=== PATIENT | male | born 1970 | race African-American/Black ===

== ENCOUNTER 2017-06-04 09:43 | Emergency (ER) | payer MEDICAID, OTHER ==
[~2017-06-04] VITALS: Ht 190.5 cm; Wt 100.0 kg
[2017-06-04] MEDS ORDERED: KETOROLAC 30MG/ML VIAL IV STA (11:38)
[2017-06-04] MEDS ORDERED: ACETAMINOPHEN 325MG TABLET PO STA (11:38)
[2017-06-04] MEDS ORDERED: SODIUM CHLORIDE 0.9% 1,000 ML IV ONE (11:38)
[2017-06-04 11:49] LABS: BASOPHILS % 0.4 % (0.0-2.0); EOSINOPHILS % 0.2 % (0.0-5.0); HEMATOCRIT. 43.5 % (42.0-52.0); HEMOGLOBIN. 15.1 g/dL (14.0-18.0); LYMPHOCYTES % 16.2 % (20.0-50.0); MEAN CORPUSCULAR VOLUME 86.5 fL (80.0-94.0); MEAN PLATELET VOLUME 8.7 fl (7.4-10.4); NEUTROPHILS % 70.2 % (40.0-76.0); PLATELET 171 x1000/uL (130-400); RED BLOOD CELL COUNT 5.02 mill/uL (4.7-6.1); RED CELL DISTRIBUTION WIDTH 13.2 % (11.6-14.6)
[2017-06-04 11:56] LABS: INR 1.1; PROTHROMBIN TIME 11.3 sec (9.4-11.6)
[2017-06-04 12:01] LABS: CHLORIDE 105 mEq/L (98-107)
[2017-06-04 13:53] VITALS: BP 172/108
== END 2017-06-04 14:07 | disposition home or self-care (01) ==
LOC: ER 10:17
DX: R51 Headache (principal); M79.1 Myalgia; R50.9 Fever, unspecified; R05 Cough; R79.1 Abnormal coagulation profile
CPT/HCPCS: 36415; 71045; 80053; 85025; 85610; 93005; 96361; 96374; 99285; J1885; J7030

== ENCOUNTER 2017-10-23 13:26 | Emergency (ER) | payer MEDICAID, OTHER ==
[~2017-10-23] VITALS: Ht 190.5 cm; Wt 109.0 kg
[2017-10-23 15:53] LABS: BASOPHILS % 0.7 % (0.0-2.0); EOSINOPHILS % 2.5 % (0.0-5.0); HEMATOCRIT. 38.3 % (42.0-52.0); HEMOGLOBIN. 13.6 g/dL (14.0-18.0); LYMPHOCYTES % 27.4 % (20.0-50.0); MEAN CORPUSCULAR HEMOGLOBIN 30.3 pg (28.0-32.0); MEAN CORPUSCULAR VOLUME 85.5 fL (80.0-94.0); MEAN PLATELET VOLUME 9.1 fl (7.4-10.4); NEUTROPHILS % 61.4 % (40.0-76.0); PLATELET 167 x1000/uL (130-400); RED BLOOD CELL COUNT 4.48 mill/uL (4.7-6.1); RED CELL DISTRIBUTION WIDTH 13.8 % (11.6-14.6)
[2017-10-23 15:54] LABS: CHLORIDE 106 mEq/L (98-107)
[2017-10-23 15:56] LABS: PROTHROMBIN TIME 10.7 sec (9.4-11.6)
[2017-10-23 16:00] VITALS: BP 175/110
== END 2017-10-23 17:46 | disposition home or self-care (01) ==
LOC: ER 13:26
DX: K12.2 Cellulitis and abscess of mouth (principal); J20.9 Acute bronchitis, unspecified; F17.200 Nicotine dependence, unspecified, uncomplicated
CPT/HCPCS: 36415; 71045; 80053; 83880; 84484; 85025; 85610; 93005; 99285; Z7610

== ENCOUNTER 2018-01-06 08:07 | Emergency (ER) | payer OTHER ==
[~2018-01-06] VITALS: Ht 190.5 cm; Wt 113.0 kg
[2018-01-06] MEDS ORDERED: HYDR-2510 PO (08:32)
[2018-01-06] MEDS ORDERED: AMLODIPINE 5MG TABLET PO ONE (09:15)
[2018-01-06 10:01] LABS: CHLORIDE 103 mEq/L (98-107)
[2018-01-06 10:33] VITALS: BP 181/128
== END 2018-01-06 10:36 | disposition home or self-care (01) ==
LOC: ER 08:07
DX: J02.9 Acute pharyngitis, unspecified (principal); Z79.899 Other long term (current) drug therapy
CPT/HCPCS: 36415; 80048; 99283; 99284

== ENCOUNTER 2018-02-17 15:28 | Inpatient (IN) | payer OTHER ==
[~2018-02-17] VITALS: Ht 182.9 cm; Wt 113.4 kg
[~2018-02-17 15:28] MED LIST: HYDR-2510 PO
[2018-02-17] MEDS ORDERED: LEVOFLOXACIN 750MG PREMIX 150 ML IV ONE (16:00)
[2018-02-17] MEDS ORDERED: SODIUM CHLORIDE 0.9% 1000ML BAG (SEPSIS BOLUS) IV ONE (16:00)
[2018-02-17 16:18] LABS: BASOPHILS % 0.5 % (0.0-2.0); EOSINOPHILS % 2.1 % (0.0-5.0); HEMATOCRIT. 43.8 % (42.0-52.0); HEMOGLOBIN. 15.5 g/dL (14.0-18.0); LYMPHOCYTES % 12.2 % (20.0-50.0); MEAN CORPUSCULAR HEMOGLOBIN 30.3 pg (28.0-32.0); MEAN CORPUSCULAR VOLUME 85.3 fL (80.0-94.0); MEAN PLATELET VOLUME 9.2 fl (7.4-10.4); MONOCYTES % 7.2 % (2.0-8.0); PLATELET 207 x1000/uL (130-400); RED BLOOD CELL COUNT 5.13 mill/uL (4.7-6.1); RED CELL DISTRIBUTION WIDTH 13.4 % (11.6-14.6)
[2018-02-17 16:27] LABS: CHLORIDE 105 mEq/L (98-107); PARTIAL THROMBOPLASTIN TIME 31.3 sec (23.4-31.0); PROTHROMBIN TIME 10.4 sec (9.1-11.1)
[2018-02-17] MEDS ORDERED: CLONIDINE 0.2MG TABLET PO ONE (16:30)
[2018-02-17] MEDS ORDERED: ACETAMINOPHEN 325MG TABLET PO ONE (16:30)
[2018-02-17 17:27] LABS: CLARITY URINE CLEAR (CLEAR); COLOR URINE YELLOW (YELLOW); KETONES URINE NEGATIVE (NEGATIVE); LEUKOCYTE ESTERASE URINE NEGATIVE (NEGATIVE); NITRITE URINE NEGATIVE (NEGATIVE); OCCULT BLOOD URINE NEGATIVE (NEGATIVE); PROTEIN URINE 1+ (NEGATIVE); SPECIFIC GRAVITY URINE 1.021 (1.005-1.030); UROBILINOGEN URINE 0.2 E.U./dL (0.2-1.0)
[2018-02-17] MEDS ORDERED: ALBUTEROL (0.083%) 2.5MG/3ML NEB HHN STA (17:59)
[2018-02-17] MEDS ORDERED: IPRATROPIUM BROMIDE (0.02%) 0.5MG/2.5ML NEB HHN STA (17:59)
[2018-02-17] MEDS ORDERED: METHYLPREDNISOLONE SOD SUCC 125 MG/2 ML VIAL IV STA (17:59)
[2018-02-17] MEDS ORDERED: ASPIRIN 325MG EC TABLET PO ONE (18:00)
[2018-02-17 21:00] VITALS: BP 155/101
[2018-02-17 21:57] VITALS: BP 155/101
[2018-02-17] MEDS ORDERED: AZITHROMYCIN 1,000 MG in DEXT 5% WATER 250 ML IV SCH (23:45)
[2018-02-17] MEDS ORDERED: CLONIDINE 0.1MG TABLET PO PRN (23:45)
[2018-02-17] MEDS ORDERED: CEFTRIAXONE 1,000 MG in DEXTROSE 5% WATER 50 ML IV SCH (23:45)
[2018-02-18] VITALS (7 sets, daily range): BP systolic 134–182; BP diastolic 86–122
[2018-02-18] MEDS: IPRATROPIUM/ALBUTEROL 0.5-3(2.5)MG/3ML NEB HHN SCH ×5 (04:23→19:59)
[2018-02-18] MEDS: METHYLPREDNISOLONE SOD SUCC 40 MG/ML VIAL IV SCH ×3 (06:47→21:14)
[2018-02-18] MEDS ORDERED: METHYLPREDNISOLONE SOD SUCC 40 MG/ML VIAL ONE (06:48)
[2018-02-18] MEDS: CEFTRIAXONE 1 G PREMIX 50 ML IV SCH (06:48)
[2018-02-18 06:51] LABS: HEMATOCRIT 38.4 % (42.0-52.0); HEMOGLOBIN 13.5 g/dL (14.0-18.0); MEAN CORPUSCULAR HEMOGLOBIN 30.5 pg (28.0-32.0); MEAN CORPUSCULAR VOLUME 86.3 fL (80.0-94.0); PLATELET 170 x1000/uL (130-400); RED BLOOD CELL COUNT 4.45 mill/uL (4.7-6.1); RED CELL DISTRIBUTION WIDTH 13.7 % (11.6-14.6)
[2018-02-18] MEDS: ENOXAPARIN 30MG/0.3ML SYR SUBCUT SCH ×2 (08:20→20:46)
[2018-02-18] MEDS: SODIUM CHLORIDE 0.9% 1,000 ML IV SCH (13:05)
[2018-02-18] MEDS: OMEPRAZOLE 20MG CAPSULE EXTENDED RELEASE PO SCH (13:05)
[2018-02-18] MEDS: NEBIVOLOL HCL 5 MG TABLET PO SCH (13:06)
[2018-02-18] MEDS ORDERED: AZITHROMYCIN 500MG in DEXTROSE 5% WATER 250ML IV SCH (14:30)
[2018-02-18] MEDS ORDERED: DEXTROSE 50% WATER 50ML SYRINGE IV PRN (19:00)
[2018-02-18] MEDS: LISINOPRIL 10MG TABLET PO SCH (19:08)
[2018-02-18] MEDS: BLOOD SUGAR DIAGNOSTIC STRIP TEST SCH (21:49)
[2018-02-18] MEDS: INSULIN LISPRO 100 UNITS/ML SUBCUT SCH (22:21)
[2018-02-18 22:46] LABS: CLARITY URINE CLEAR (CLEAR); COLOR URINE YELLOW (YELLOW); KETONES URINE TRACE (NEGATIVE); LEUKOCYTE ESTERASE URINE NEGATIVE (NEGATIVE); NITRITE URINE NEGATIVE (NEGATIVE); OCCULT BLOOD URINE NEGATIVE (NEGATIVE); PROTEIN URINE TRACE (NEGATIVE); SPECIFIC GRAVITY URINE 1.035 (1.005-1.030); UROBILINOGEN URINE 0.2 E.U./dL (0.2-1.0)
[2018-02-19] VITALS: BP 131/87
[2018-02-19] MEDS: CEFTRIAXONE 1 G PREMIX 50 ML IV SCH (01:10)
[2018-02-19] MEDS: IPRATROPIUM/ALBUTEROL 0.5-3(2.5)MG/3ML NEB HHN SCH ×5 (01:24→13:13)
[2018-02-19 04:00] VITALS: BP 134/86
[2018-02-19] MEDS: SODIUM CHLORIDE 0.9% 1,000 ML IV SCH (04:42)
[2018-02-19] MEDS: OMEPRAZOLE 20MG CAPSULE EXTENDED RELEASE PO SCH (06:33)
[2018-02-19] MEDS: METHYLPREDNISOLONE SOD SUCC 40 MG/ML VIAL IV SCH (06:33)
[2018-02-19] MEDS: BLOOD SUGAR DIAGNOSTIC STRIP TEST SCH ×2 (06:33→12:06)
[2018-02-19 08:00] VITALS: BP 146/95
[2018-02-19 08:00] LABS: HEMATOCRIT. 40.3 % (42.0-52.0); HEMOGLOBIN. 14.2 g/dL (14.0-18.0); MEAN CORPUSCULAR HEMOGLOBIN 30.8 pg (28.0-32.0); MEAN CORPUSCULAR VOLUME 87.5 fL (80.0-94.0); MEAN PLATELET VOLUME 9.9 fl (7.4-10.4); RED BLOOD CELL COUNT 4.61 mill/uL (4.7-6.1); RED CELL DISTRIBUTION WIDTH 13.8 % (11.6-14.6)
[2018-02-19] MEDS: NEBIVOLOL HCL 5 MG TABLET PO SCH (09:02)
[2018-02-19] MEDS: LISINOPRIL 10MG TABLET PO SCH (09:02)
[2018-02-19] MEDS: ENOXAPARIN 30MG/0.3ML SYR SUBCUT SCH (09:03)
[2018-02-19] MEDS: INSULIN LISPRO 100 UNITS/ML SUBCUT SCH ×2 (09:04→12:19)
[2018-02-19 09:14] LABS: CHLORIDE 109 mEq/L (98-107)
[2018-02-19 12:00] VITALS: BP 130/77
[2018-02-19 13:24] LABS: PLATELET 89 x1000/uL (130-400)
== END 2018-02-19 15:45 | disposition home or self-care (01) | DRG 133 ==
LOC: ER 15:41 → 6WST 18:08 → ENRESERV 19:47
PROVIDERS: ADMIT Internal Medicine; ATTEND Internal Medicine
DX: J96.01 Acute respiratory failure with hypoxia (principal); N17.9 Acute kidney failure, unspecified; E11.22 Type 2 diabetes mellitus with diabetic chronic kidney disease; E11.65 Type 2 diabetes mellitus with hyperglycemia; J20.9 Acute bronchitis, unspecified; I16.0 Hypertensive urgency; I12.9 Hypertensive chronic kidney disease with stage 1 through stage 4 chronic kidney disease, or unspecified chronic kidney disease; N18.9 Chronic kidney disease, unspecified; Z91.19 Patient's noncompliance with other medical treatment and regimen; Z87.891 Personal history of nicotine dependence; Z79.899 Other long term (current) drug therapy
CPT/HCPCS: 36415; 71045; 80048; 82962; 83036; 83605; 84145; 84484; 85027; 85379; 93005; 94640; 96365; 96375; 99285; J0456; J0696; J1650; J1815; J1956; J2920; J2930; J7030; J7040; J7050; J7060; J7611; J7620

== ENCOUNTER 2018-02-19 22:57 | Inpatient (IN) | payer OTHER ==
[~2018-02-19] VITALS: Ht 190.5 cm; Wt 119.3 kg
[2018-02-20] MEDS ORDERED: IPRATROPIUM BROMIDE (0.02%) 0.5MG/2.5ML NEB HHN STA ×2 (02:18→06:37)
[2018-02-20] MEDS ORDERED: ALBUTEROL (0.083%) 2.5MG/3ML NEB HHN STA ×2 (02:18→06:37)
[2018-02-20] MEDS ORDERED: METHYLPREDNISOLONE SOD SUCC 125 MG/2 ML VIAL IV STA (02:18)
[2018-02-20] MEDS ORDERED: ALBUTEROL (0.5%) 2.5MG/0.5ML NEB HHN ONE (02:44)
[2018-02-20 03:02] LABS: BASOPHILS % 0.3 % (0.0-2.0); EOSINOPHILS % 0.1 % (0.0-5.0); HEMATOCRIT. 42.4 % (42.0-52.0); HEMOGLOBIN. 14.8 g/dL (14.0-18.0); LYMPHOCYTES % 9.1 % (20.0-50.0); MEAN CORPUSCULAR HEMOGLOBIN 30.5 pg (28.0-32.0); MEAN CORPUSCULAR VOLUME 87.7 fL (80.0-94.0); MEAN PLATELET VOLUME 9.2 fl (7.4-10.4); MONOCYTES % 8.3 % (2.0-8.0); NEUTROPHILS % 82.2 % (40.0-76.0); PLATELET 202 x1000/uL (130-400); RED BLOOD CELL COUNT 4.84 mill/uL (4.7-6.1); RED CELL DISTRIBUTION WIDTH 13.8 % (11.6-14.6)
[2018-02-20 03:06] LABS: PROTHROMBIN TIME 10.1 sec (9.1-11.1)
[2018-02-20 03:38] LABS: CHLORIDE 108 mEq/L (98-107)
[2018-02-20] MEDS ORDERED: FUROSEMIDE 40MG/4ML VIAL IVP NR (05:30)
[2018-02-20 08:26] LABS: CLARITY URINE CLEAR (CLEAR); COLOR URINE YELLOW (YELLOW); KETONES URINE NEGATIVE (NEGATIVE); LEUKOCYTE ESTERASE URINE NEGATIVE (NEGATIVE); NITRITE URINE NEGATIVE (NEGATIVE); OCCULT BLOOD URINE 1+ (NEGATIVE); PROTEIN URINE TRACE (NEGATIVE); SPECIFIC GRAVITY URINE 1.013 (1.005-1.030); UROBILINOGEN URINE 0.2 E.U./dL (0.2-1.0)
[2018-02-20] MEDS: METOPROLOL TARTRATE 25MG TABLET PO SCH ×2 (12:17→23:25)
[2018-02-20] MEDS: CLONIDINE 0.2MG TABLET PO PRN (14:51)
[2018-02-20] MEDS ORDERED: CLONIDINE 0.1MG TABLET PO PRN (16:15)
[2018-02-20] MEDS: NEBIVOLOL HCL 5 MG TABLET PO SCH (17:15)
[2018-02-20 18:24] LABS: HEPATITIS B SURFACE ANTIGEN NEGATIVE
[2018-02-20] MEDS: HYDRALAZINE 20MG/ML VIAL IV PRN (18:34)
[2018-02-20 18:53] LABS: HEPATITIS B CORE AB IGM NEGATIVE
[2018-02-20 18:54] LABS: HEPATITIS A AB IGM NEGATIVE (NEGATIVE)
[2018-02-20] MEDS: LOSARTAN POTASSIUM 25 MG TABLET PO SCH (21:19)
[2018-02-20 21:23] LABS: *AMPHETAMINES SCREEN URINE NEGATIVE (NEGATIVE); *BARBITURATES SCREEN URINE NEGATIVE (NEGATIVE); *BENZODIAZEPINES SCREEN URINE NEGATIVE (NEGATIVE); *COCAINE SCREEN URINE NEGATIVE (NEGATIVE); METHADONE URINE SCREEN NEGATIVE (NEGATIVE)
[2018-02-20 21:24] LABS: CANNABINOID URINE SCREEN NEGATIVE (NEGATIVE); OPIATES URINE SCREEN NEGATIVE (NEGATIVE); PHENCYCLIDINE URINE SCREEN NEGATIVE (NEGATIVE)
[2018-02-20] MEDS: IPRATROPIUM/ALBUTEROL 0.5-3(2.5)MG/3ML NEB HHN PRN (21:40)
[2018-02-21] MEDS: CLONIDINE 0.2MG TABLET PO PRN (01:00)
[2018-02-21 06:33] LABS: BASOPHILS % 0.4 % (0.0-2.0); EOSINOPHILS % 0.5 % (0.0-5.0); HEMOGLOBIN. 14.4 g/dL (14.0-18.0); LYMPHOCYTES % 20.7 % (20.0-50.0); MEAN CORPUSCULAR HEMOGLOBIN 30.5 pg (28.0-32.0); MEAN CORPUSCULAR VOLUME 87.2 fL (80.0-94.0); MEAN PLATELET VOLUME 9.3 fl (7.4-10.4); MONOCYTES % 7.8 % (2.0-8.0); NEUTROPHILS % 70.6 % (40.0-76.0); PLATELET 201 x1000/uL (130-400); RED BLOOD CELL COUNT 4.71 mill/uL (4.7-6.1); RED CELL DISTRIBUTION WIDTH 13.7 % (11.6-14.6)
[2018-02-21 06:46] LABS: CHLORIDE 106 mEq/L (98-107)
[2018-02-21 07:02] LABS: CREATINE KINASE 170 IU/L (39-308); CREATINE KINASE MB FRACTION 2.2 ng/mL (0.5-3.6); HDL CHOLESTEROL 33 mg/dL (40-59); LDL CHOLESTEROL 76 mg/dL (5-100)
[2018-02-21] MEDS: NEBIVOLOL HCL 5 MG TABLET PO SCH ×2 (08:04→17:25)
[2018-02-21 09:00] VITALS: BP 149/100
[2018-02-21 09:36] VITALS: BP 149/100
[2018-02-21] MEDS: LOSARTAN POTASSIUM 25 MG TABLET PO SCH (10:41)
[2018-02-21] MEDS: FUROSEMIDE 40MG/4ML VIAL IV SCH (10:41)
[2018-02-21] MEDS: METOPROLOL TARTRATE 25MG TABLET PO SCH (10:42)
[2018-02-21 12:00] VITALS: BP 150/108
[2018-02-21] MEDS: ENOXAPARIN 30MG/0.3ML SYR SUBCUT SCH ×2 (15:08→22:44)
[2018-02-21 16:00] VITALS: BP 147/103
[2018-02-21 20:00] VITALS: BP 155/112
[2018-02-21] MEDS: LOSARTAN POTASSIUM 50 MG TABLET PO SCH (21:46)
[2018-02-21] MEDS: IPRATROPIUM/ALBUTEROL 0.5-3(2.5)MG/3ML NEB HHN PRN (22:14)
[2018-02-22 00:05] VITALS: BP 153/112
[2018-02-22 04:00] VITALS: BP 155/112
[2018-02-22] MEDS: CLONIDINE 0.2MG TABLET PO PRN (04:03)
[2018-02-22 07:50] VITALS: BP 117/93
[2018-02-22 07:55] LABS: BASOPHILS % 0.4 % (0.0-2.0); EOSINOPHILS % 2.5 % (0.0-5.0); HEMATOCRIT. 40.8 % (42.0-52.0); HEMOGLOBIN. 14.2 g/dL (14.0-18.0); LYMPHOCYTES % 27.7 % (20.0-50.0); MEAN CORPUSCULAR HEMOGLOBIN 30.7 pg (28.0-32.0); MEAN PLATELET VOLUME 9.4 fl (7.4-10.4); MONOCYTES % 8.4 % (2.0-8.0); PLATELET 198 x1000/uL (130-400); RED BLOOD CELL COUNT 4.64 mill/uL (4.7-6.1); RED CELL DISTRIBUTION WIDTH 13.7 % (11.6-14.6)
[2018-02-22] MEDS: FUROSEMIDE 40MG/4ML VIAL IV SCH (08:35)
[2018-02-22] MEDS: ENOXAPARIN 30MG/0.3ML SYR SUBCUT SCH ×2 (08:35→20:08)
[2018-02-22] MEDS: NEBIVOLOL HCL 5 MG TABLET PO SCH ×2 (08:36→16:36)
[2018-02-22] MEDS: LOSARTAN POTASSIUM 50 MG TABLET PO SCH ×2 (08:36→20:08)
[2018-02-22] MEDS ORDERED: ENOXAPARIN 40MG/0.4ML SYR SUBCUT SCH (09:00)
[2018-02-22 09:02] LABS: CREATINE KINASE MB FRACTION 1.4 ng/mL (0.5-3.6)
[2018-02-22 12:17] VITALS: BP 142/102
[2018-02-22] MEDS ORDERED: REGADENOSON 0.4 MG/5 ML IV ONE (14:30)
[2018-02-22 16:16] VITALS: BP 155/104
[2018-02-22 19:15] VITALS: BP 148/103
[2018-02-22] MEDS: AMLODIPINE 5MG TABLET PO SCH (20:08)
[2018-02-22] MEDS: IPRATROPIUM/ALBUTEROL 0.5-3(2.5)MG/3ML NEB HHN PRN (20:26)
[2018-02-23] VITALS (8 sets, daily range): BP systolic 125–171; BP diastolic 73–161
[2018-02-23] MEDS ORDERED: LORAZEPAM 1MG TABLET PO NR (00:30)
[2018-02-23] MEDS: HYDRALAZINE 20MG/ML VIAL IV PRN (07:03)
[2018-02-23 07:58] LABS: BASOPHILS % 0.5 % (0.0-2.0); EOSINOPHILS % 2.8 % (0.0-5.0); HEMATOCRIT. 42.6 % (42.0-52.0); HEMOGLOBIN. 14.8 g/dL (14.0-18.0); LYMPHOCYTES % 25.6 % (20.0-50.0); MEAN CORPUSCULAR HEMOGLOBIN 30.2 pg (28.0-32.0); MEAN CORPUSCULAR VOLUME 86.9 fL (80.0-94.0); MONOCYTES % 8.2 % (2.0-8.0); NEUTROPHILS % 62.9 % (40.0-76.0); PLATELET 184 x1000/uL (130-400); RED CELL DISTRIBUTION WIDTH 13.7 % (11.6-14.6)
[2018-02-23 08:28] LABS: CHLORIDE 104 mEq/L (98-107)
[2018-02-23] MEDS ORDERED: METHYLPREDNISOLONE SOD SUCC 125 MG/2 ML VIAL IV SCH (09:30)
[2018-02-23] MEDS ORDERED: REGADENOSON 0.4 MG/5 ML IV ONE (10:51)
[2018-02-23] MEDS: ENOXAPARIN 30MG/0.3ML SYR SUBCUT SCH ×2 (12:06→20:51)
[2018-02-23] MEDS: NEBIVOLOL HCL 5 MG TABLET PO SCH (12:07)
[2018-02-23] MEDS: AMLODIPINE 5MG TABLET PO SCH ×2 (12:07→20:51)
[2018-02-23] MEDS: FUROSEMIDE 40MG/4ML VIAL IV SCH ×2 (12:08→16:40)
[2018-02-23] MEDS: LOSARTAN POTASSIUM 50 MG TABLET PO SCH ×2 (12:08→20:51)
[2018-02-23] MEDS: IPRATROPIUM/ALBUTEROL 0.5-3(2.5)MG/3ML NEB HHN SCH ×3 (12:28→21:17)
[2018-02-23] MEDS: ISOSORB DINIT/HYDRALAZINE HCL 20/37.5MG TABLET PO SCH (14:02)
[2018-02-23] MEDS: METHYLPREDNISOLONE SOD SUCC 40 MG/ML VIAL IV SCH ×2 (14:02→23:44)
[2018-02-23] MEDS: LEVOFLOXACIN 500MG PREMIX 100 ML IV SCH (14:03)
[2018-02-23] MEDS: BENZONATATE 100MG CAPSULE PO PRN (14:25)
[2018-02-23] MEDS: CARVEDILOL 6.25 MG TABLET PO SCH (20:51)
[2018-02-24] MEDS: ISOSORB DINIT/HYDRALAZINE HCL 20/37.5MG TABLET PO SCH ×3 (00:02→14:30)
[2018-02-24] MEDS: IPRATROPIUM/ALBUTEROL 0.5-3(2.5)MG/3ML NEB HHN SCH ×5 (00:35→16:06)
[2018-02-24 04:42] VITALS: BP 121/78
[2018-02-24] MEDS: BENZONATATE 100MG CAPSULE PO PRN ×2 (04:58→14:30)
[2018-02-24 06:56] LABS: BASOPHILS % 0.1 % (0.0-2.0); HEMATOCRIT. 40.9 % (42.0-52.0); HEMOGLOBIN. 14.5 g/dL (14.0-18.0); LYMPHOCYTES % 9.9 % (20.0-50.0); MEAN CORPUSCULAR HEMOGLOBIN 30.3 pg (28.0-32.0); MEAN CORPUSCULAR VOLUME 85.8 fL (80.0-94.0); MEAN PLATELET VOLUME 9.5 fl (7.4-10.4); MONOCYTES % 2.4 % (2.0-8.0); NEUTROPHILS % 87.6 % (40.0-76.0); PLATELET 252 x1000/uL (130-400); RED BLOOD CELL COUNT 4.77 mill/uL (4.7-6.1); RED CELL DISTRIBUTION WIDTH 13.4 % (11.6-14.6)
[2018-02-24] MEDS: METHYLPREDNISOLONE SOD SUCC 40 MG/ML VIAL IV SCH ×2 (07:02→14:30)
[2018-02-24 08:01] VITALS: BP 136/84
[2018-02-24] MEDS: AMLODIPINE 5MG TABLET PO SCH (08:27)
[2018-02-24] MEDS: CARVEDILOL 6.25 MG TABLET PO SCH (08:27)
[2018-02-24] MEDS: LOSARTAN POTASSIUM 50 MG TABLET PO SCH (08:27)
[2018-02-24] MEDS: FUROSEMIDE 40MG/4ML VIAL IV SCH (08:27)
[2018-02-24] MEDS: ENOXAPARIN 30MG/0.3ML SYR SUBCUT SCH (08:28)
[2018-02-24] MEDS: LEVOFLOXACIN 500MG PREMIX 100 ML IV SCH (11:17)
[2018-02-24 12:13] VITALS: BP 140/83
[2018-02-24 17:09] VITALS: BP 137/85
== END 2018-02-24 17:48 | disposition home or self-care (01) | DRG 133 ==
LOC: ER 22:57 → SUPCPDRO 02-20 16:06 → 5WST 02-21 06:04 → ENRESERV 02-21 07:18 → CANBEDREQ 02-21 08:33
PROVIDERS: ADMIT Internal Medicine; ATTEND Internal Medicine
DX: J96.00 Acute respiratory failure, unspecified whether with hypoxia or hypercapnia (principal); I50.41 Acute combined systolic (congestive) and diastolic (congestive) heart failure; N17.9 Acute kidney failure, unspecified; E11.22 Type 2 diabetes mellitus with diabetic chronic kidney disease; R65.10 Systemic inflammatory response syndrome (SIRS) of non-infectious origin without acute organ dysfunction; I13.0 Hypertensive heart and chronic kidney disease with heart failure and stage 1 through stage 4 chronic kidney disease, or unspecified chronic kidney disease; E11.65 Type 2 diabetes mellitus with hyperglycemia; I43 Cardiomyopathy in diseases classified elsewhere; J20.9 Acute bronchitis, unspecified; F17.210 Nicotine dependence, cigarettes, uncomplicated; I16.0 Hypertensive urgency; N18.9 Chronic kidney disease, unspecified; Z79.4 Long term (current) use of insulin
CPT/HCPCS: 36415; 71045; 71250; 76705; 78452; 80048; 80053; 80061; 82550; 82553; 83735; 83880; 84443; 84484; 85025; 85379; 93005; 93017; 93306; 93970; 94640; 96374; 96375; 99285; A9500; J0360; J1650; J1940; J1956; J2785; J2920; J2930; J7050; J7611; J7620

== ENCOUNTER 2018-05-08 15:22 | Emergency (ER) | payer OTHER ==
[~2018-05-08] VITALS: Ht 190.5 cm; Wt 118.0 kg
[2018-05-08] MEDS ORDERED: IBUPROFEN 600MG TABLET PO STA (17:18)
[2018-05-08] MEDS ORDERED: CLONIDINE 0.1MG TABLET PO ONE (19:15)
[2018-05-08 19:24] LABS: BASOPHILS % 0.8 % (0.0-2.0); EOSINOPHILS % 2.6 % (0.0-5.0); HEMATOCRIT. 42.5 % (42.0-52.0); HEMOGLOBIN. 15.1 g/dL (14.0-18.0); LYMPHOCYTES % 32.4 % (20.0-50.0); MEAN CORPUSCULAR HEMOGLOBIN 30.4 pg (28.0-32.0); MEAN CORPUSCULAR VOLUME 85.5 fL (80.0-94.0); MEAN PLATELET VOLUME 8.5 fl (7.4-10.4); MONOCYTES % 7.8 % (2.0-8.0); NEUTROPHILS % 56.4 % (40.0-76.0); PLATELET 222 x1000/uL (130-400); RED BLOOD CELL COUNT 4.98 mill/uL (4.7-6.1); RED CELL DISTRIBUTION WIDTH 13.6 % (11.6-14.6)
[2018-05-08 19:26] LABS: PROTHROMBIN TIME 10.4 sec (9.1-11.1)
[2018-05-08 19:30] LABS: CHLORIDE 105 mEq/L (98-107)
[2018-05-08] MEDS ORDERED: CLONIDINE 0.2MG TABLET PO ONE (19:45)
[2018-05-08 23:30] VITALS: BP 165/100
== END 2018-05-08 23:45 | disposition home or self-care (01) ==
LOC: ER 23:37
DX: I10 Essential (primary) hypertension (principal); L08.9 Local infection of the skin and subcutaneous tissue, unspecified
CPT/HCPCS: 36415; 71045; 99284

== ENCOUNTER 2019-02-22 12:31 | Inpatient (IN) | payer OTHER ==
[2019-02-22] VITALS (30 sets, daily range): BP systolic 145–178; BP diastolic 75–117
[~2019-02-22] VITALS: Ht 188 cm; Wt 116.1 kg
[2019-02-22] MEDS ORDERED: LABETALOL HCL 20MG/4ML CARPUJECT IV ONE (13:45)
[2019-02-22] MEDS ORDERED: LABETALOL 5MG/ML SYR 20 MG/4 ML SYRINGE IV ONE (14:15)
[2019-02-22 14:57] LABS: BASOPHILS % 0.9 % (0.0-2.0); EOSINOPHILS % 3.1 % (0.0-5.0); HEMOGLOBIN. 15.3 g/dL (14.0-18.0); LYMPHOCYTES % 22.6 % (20.0-50.0); MEAN CORPUSCULAR HEMOGLOBIN 30.1 pg (28.0-32.0); MEAN CORPUSCULAR VOLUME 84.4 fL (80.0-94.0); MEAN PLATELET VOLUME 9.3 fl (7.4-10.4); NEUTROPHILS % 64.4 % (40.0-76.0); PLATELET 172 x1000/uL (130-400); RED BLOOD CELL COUNT 5.09 mill/uL (4.7-6.1); RED CELL DISTRIBUTION WIDTH 14.1 % (11.6-14.6)
[2019-02-22] MEDS ORDERED: NICARDIPINE 40MG/200ML PREMIX 200 ML IV STA (14:57)
[2019-02-22 15:04] LABS: CHLORIDE 105 mEq/L (98-107)
[2019-02-22] MEDS ORDERED: FUROSEMIDE 20MG/2ML VIAL IVP ONE (15:30)
[2019-02-22] MEDS ORDERED: ASPIRIN 81MG TABLET PO ONE (16:45)
[2019-02-22] MEDS ORDERED: AMLO5TAB88 MT (17:08)
[2019-02-22] MEDS ORDERED: DEXTROSE 50% WATER 50ML SYRINGE IV PRN (17:15)
[2019-02-22 19:02] LABS: CLARITY URINE CLEAR (CLEAR); COLOR URINE YELLOW (YELLOW); KETONES URINE NEGATIVE (NEGATIVE); LEUKOCYTE ESTERASE URINE NEGATIVE (NEGATIVE); NITRITE URINE NEGATIVE (NEGATIVE); OCCULT BLOOD URINE TRACE (NEGATIVE); PH URINE 5.5 (4.5-8.0); PROTEIN URINE 2+ (NEGATIVE); UROBILINOGEN URINE 0.2 E.U./dL (0.2-1.0)
[2019-02-22] MEDS ORDERED: ONDANSETRON HCL 4MG/2ML INJ IV PRN (20:00)
[2019-02-22] MEDS: NICARDIPINE 100 MG in SODIUM CHLORIDE 0.9% 60 ML IV PRN (20:31)
[2019-02-22] MEDS: AMLODIPINE 5MG TABLET PO SCH (20:43)
[2019-02-22] MEDS: BLOOD SUGAR DIAGNOSTIC STRIP TEST SCH (21:23)
[2019-02-22] MEDS: INSULIN LISPRO 100 UNITS/ML SUBCUT SCH (21:29)
[2019-02-23] VITALS (92 sets, daily range): BP systolic 119–179; BP diastolic 76–120
[2019-02-23] MEDS: NICARDIPINE 100 MG in SODIUM CHLORIDE 0.9% 60 ML IV PRN (04:43)
[2019-02-23 05:07] LABS: CHLORIDE 104 mEq/L (98-107)
[2019-02-23 05:12] LABS: BASOPHILS % 0.6 % (0.0-2.0); EOSINOPHILS % 3.2 % (0.0-5.0); HEMATOCRIT. 40.8 % (42.0-52.0); HEMOGLOBIN. 14.6 g/dL (14.0-18.0); LYMPHOCYTES % 22.4 % (20.0-50.0); MEAN CORPUSCULAR HEMOGLOBIN 30.1 pg (28.0-32.0); MEAN CORPUSCULAR VOLUME 84.4 fL (80.0-94.0); MEAN PLATELET VOLUME 9.4 fl (7.4-10.4); MONOCYTES % 7.9 % (2.0-8.0); NEUTROPHILS % 65.9 % (40.0-76.0); PLATELET 173 x1000/uL (130-400); RED BLOOD CELL COUNT 4.83 mill/uL (4.7-6.1); RED CELL DISTRIBUTION WIDTH 13.9 % (11.6-14.6)
[2019-02-23 05:15] LABS: LDL CHOLESTEROL 95 mg/dL (5-100)
[2019-02-23 05:17] LABS: HDL CHOLESTEROL 25 mg/dL (40-59)
[2019-02-23] MEDS: BLOOD SUGAR DIAGNOSTIC STRIP TEST SCH ×4 (06:32→21:00)
[2019-02-23] MEDS: INSULIN LISPRO 100 UNITS/ML SUBCUT SCH ×4 (06:32→20:59)
[2019-02-23] MEDS ORDERED: LISINOPRIL 10MG TABLET PO SCH (09:00)
[2019-02-23] MEDS: AMLODIPINE 5MG TABLET PO SCH ×2 (09:45→20:50)
[2019-02-23] MEDS ORDERED: FUROSEMIDE 20MG/2ML VIAL IVP NR (10:48)
[2019-02-23 11:21] LABS: *AMPHETAMINES SCREEN URINE NEGATIVE (NEGATIVE); *BARBITURATES SCREEN URINE NEGATIVE (NEGATIVE); *BENZODIAZEPINES SCREEN URINE NEGATIVE (NEGATIVE); *COCAINE SCREEN URINE NEGATIVE (NEGATIVE); CANNABINOID URINE SCREEN NEGATIVE (NEGATIVE); PHENCYCLIDINE URINE SCREEN NEGATIVE (NEGATIVE)
[2019-02-23 11:22] LABS: METHADONE URINE SCREEN NEGATIVE (NEGATIVE); OPIATES URINE SCREEN NEGATIVE (NEGATIVE)
[2019-02-23] MEDS: HYDRALAZINE HCL 25MG TABLET PO SCH ×2 (11:30→14:12)
[2019-02-23] MEDS: POTASSIUM CHLORIDE 20MEQ TABLET SR PO SCH (11:30)
[2019-02-23] MEDS: ACETAMINOPHEN 325MG TABLET PO PRN (11:42)
[2019-02-23 13:59] LABS: *AMPHETAMINES SCREEN URINE NEGATIVE (NEGATIVE); *BARBITURATES SCREEN URINE NEGATIVE (NEGATIVE); CANNABINOID URINE SCREEN NEGATIVE (NEGATIVE); PHENCYCLIDINE URINE SCREEN NEGATIVE (NEGATIVE)
[2019-02-23 14:00] LABS: *BENZODIAZEPINES SCREEN URINE NEGATIVE (NEGATIVE); *COCAINE SCREEN URINE NEGATIVE (NEGATIVE); OPIATES URINE SCREEN NEGATIVE (NEGATIVE)
[2019-02-23] MEDS ORDERED: HYDRALAZINE HCL 25MG TABLET PO SCH (14:00)
[2019-02-23 14:01] LABS: METHADONE URINE SCREEN NEGATIVE (NEGATIVE)
[2019-02-23] MEDS: LISINOPRIL 20MG TABLET PO SCH (20:50)
[2019-02-23] MEDS: CLONIDINE 0.1MG TABLET PO SCH (21:00)
[2019-02-23] MEDS: HYDRALAZINE HCL 50MG TABLET PO SCH (21:00)
[2019-02-24] VITALS (82 sets, daily range): BP systolic 115–171; BP diastolic 21–139
[2019-02-24] MEDS: NICARDIPINE 100 MG in SODIUM CHLORIDE 0.9% 60 ML IV PRN (04:45)
[2019-02-24 05:03] LABS: BASOPHILS % 0.8 % (0.0-2.0); EOSINOPHILS % 3.3 % (0.0-5.0); HEMATOCRIT. 41.1 % (42.0-52.0); HEMOGLOBIN. 14.5 g/dL (14.0-18.0); LYMPHOCYTES % 24.1 % (20.0-50.0); MEAN CORPUSCULAR HEMOGLOBIN 30.2 pg (28.0-32.0); MEAN CORPUSCULAR VOLUME 85.7 fL (80.0-94.0); MEAN PLATELET VOLUME 9.2 fl (7.4-10.4); MONOCYTES % 8.8 % (2.0-8.0); PLATELET 192 x1000/uL (130-400)
[2019-02-24 05:18] LABS: PHOSPHORUS 3.5 mg/dL (2.5-4.9)
[2019-02-24] MEDS: CLONIDINE 0.1MG TABLET PO SCH ×3 (05:48→21:22)
[2019-02-24] MEDS: BLOOD SUGAR DIAGNOSTIC STRIP TEST SCH ×4 (05:48→21:22)
[2019-02-24] MEDS: HYDRALAZINE HCL 50MG TABLET PO SCH ×3 (05:48→21:22)
[2019-02-24] MEDS: INSULIN LISPRO 100 UNITS/ML SUBCUT SCH ×4 (06:11→21:34)
[2019-02-24] MEDS: LISINOPRIL 20MG TABLET PO SCH ×2 (08:12→21:21)
[2019-02-24] MEDS: AMLODIPINE 5MG TABLET PO SCH ×2 (08:12→21:22)
[2019-02-24] MEDS: POTASSIUM CHLORIDE 20MEQ TABLET SR PO SCH (08:12)
[2019-02-24] MEDS: TAMSULOSIN HCL 0.4MG SR CAPSULE PO SCH (08:13)
[2019-02-24] MEDS: METOPROLOL TARTRATE 25MG TABLET PO SCH ×2 (14:02→21:22)
[2019-02-25] VITALS (29 sets, daily range): BP systolic 120–160; BP diastolic 63–104
[2019-02-25 05:18] LABS: BASOPHILS % 0.3 % (0.0-2.0); EOSINOPHILS % 1.6 % (0.0-5.0); HEMATOCRIT. 40.1 % (42.0-52.0); LYMPHOCYTES % 18.2 % (20.0-50.0); MEAN CORPUSCULAR VOLUME 86.3 fL (80.0-94.0); MEAN PLATELET VOLUME 9.3 fl (7.4-10.4); MONOCYTES % 9.2 % (2.0-8.0); NEUTROPHILS % 70.7 % (40.0-76.0); PLATELET 188 x1000/uL (130-400); RED BLOOD CELL COUNT 4.65 mill/uL (4.7-6.1)
[2019-02-25] MEDS: HYDRALAZINE HCL 50MG TABLET PO SCH ×3 (05:24→21:36)
[2019-02-25] MEDS: ACETAMINOPHEN 325MG TABLET PO PRN (05:24)
[2019-02-25] MEDS: CLONIDINE 0.1MG TABLET PO SCH ×3 (05:25→21:36)
[2019-02-25] MEDS: BLOOD SUGAR DIAGNOSTIC STRIP TEST SCH ×4 (06:06→21:36)
[2019-02-25] MEDS: INSULIN LISPRO 100 UNITS/ML SUBCUT SCH ×4 (06:44→21:38)
[2019-02-25] MEDS: TAMSULOSIN HCL 0.4MG SR CAPSULE PO SCH (08:06)
[2019-02-25] MEDS: POTASSIUM CHLORIDE 20MEQ TABLET SR PO SCH (08:06)
[2019-02-25] MEDS: LISINOPRIL 20MG TABLET PO SCH ×2 (08:07→21:36)
[2019-02-25] MEDS: AMLODIPINE 5MG TABLET PO SCH ×2 (08:07→21:36)
[2019-02-25] MEDS: METOPROLOL TARTRATE 25MG TABLET PO SCH ×2 (08:08→21:36)
[2019-02-25] MEDS ORDERED: MORPHINE SULFATE 2 MG/ML CPJ (NOT FOR IM USE) IV PRN (15:15)
[2019-02-25] MEDS ORDERED: METHYLPREDNISOLONE SOD SUCC 125 MG/2 ML VIAL IV NR (16:00)
[2019-02-25] MEDS: IPRATROPIUM BROMIDE (0.02%) 0.5MG/2.5ML NEB HHN SCH (20:15)
[2019-02-25] MEDS: METHYLPREDNISOLONE SOD SUCC 40 MG/ML VIAL IV SCH (23:47)
[2019-02-26] VITALS (21 sets, daily range): BP systolic 103–156; BP diastolic 73–119
[2019-02-26] MEDS: IPRATROPIUM BROMIDE (0.02%) 0.5MG/2.5ML NEB HHN SCH ×4 (00:14→12:38)
[2019-02-26 05:59] LABS: HEMATOCRIT. 41.2 % (42.0-52.0); HEMOGLOBIN. 14.5 g/dL (14.0-18.0); MEAN CORPUSCULAR HEMOGLOBIN 30.3 pg (28.0-32.0); MEAN PLATELET VOLUME 9.7 fl (7.4-10.4); PLATELET 214 x1000/uL (130-400); RED BLOOD CELL COUNT 4.78 mill/uL (4.7-6.1)
[2019-02-26 06:14] LABS: PHOSPHORUS 4.2 mg/dL (2.5-4.9)
[2019-02-26] MEDS: BLOOD SUGAR DIAGNOSTIC STRIP TEST SCH ×2 (06:18→11:51)
[2019-02-26] MEDS: CLONIDINE 0.1MG TABLET PO SCH ×2 (06:18→13:52)
[2019-02-26] MEDS: HYDRALAZINE HCL 50MG TABLET PO SCH ×2 (06:18→13:51)
[2019-02-26] MEDS: INSULIN LISPRO 100 UNITS/ML SUBCUT SCH ×2 (06:19→11:57)
[2019-02-26] MEDS: METHYLPREDNISOLONE SOD SUCC 40 MG/ML VIAL IV SCH (07:35)
[2019-02-26 07:45] LABS: PLATELET ESTIMATE NORMAL
[2019-02-26] MEDS: AMLODIPINE 5MG TABLET PO SCH (08:26)
[2019-02-26] MEDS: LISINOPRIL 20MG TABLET PO SCH (08:26)
[2019-02-26] MEDS: METOPROLOL TARTRATE 25MG TABLET PO SCH (08:26)
[2019-02-26] MEDS: TAMSULOSIN HCL 0.4MG SR CAPSULE PO SCH (08:27)
[2019-02-26] MEDS: ACETAMINOPHEN 325MG TABLET PO PRN (10:43)
== END 2019-02-26 14:40 | disposition home or self-care (01) | DRG 199 ==
LOC: ER 12:31 → MICUNO 15:52 → ENRESERV 16:03
PROVIDERS: ADMIT Internal Medicine; ATTEND Internal Medicine
DX: I16.1 Hypertensive emergency (principal); E11.22 Type 2 diabetes mellitus with diabetic chronic kidney disease; I50.32 Chronic diastolic (congestive) heart failure; N18.3 Chronic kidney disease, stage 3 (moderate); E78.1 Pure hyperglyceridemia; E87.6 Hypokalemia; I13.0 Hypertensive heart and chronic kidney disease with heart failure and stage 1 through stage 4 chronic kidney disease, or unspecified chronic kidney disease; I80.8 Phlebitis and thrombophlebitis of other sites; R35.0 Frequency of micturition; I16.0 Hypertensive urgency; I82.611 Acute embolism and thrombosis of superficial veins of right upper extremity; J44.9 Chronic obstructive pulmonary disease, unspecified; Z82.49 Family history of ischemic heart disease and other diseases of the circulatory system; Z91.19 Patient's noncompliance with other medical treatment and regimen; Z87.891 Personal history of nicotine dependence
CPT/HCPCS: 36415; 71045; 76700; 78582; 80048; 80061; 80076; 80305; 81003; 82550; 82962; 83036; 83735; 83880; 84100; 84443; 84484; 93005; 93306; 93970; 93971; 94640; 99285; A9558; J1815; J1940; J2920; J2930; J3490; J7050

== ENCOUNTER 2019-06-25 04:00 | Emergency (ER) | payer OTHER ==
[~2019-06-25] VITALS: Ht 190.5 cm; Wt 95.4 kg
[2019-06-25 04:03] VITALS: BP 153/93
== END 2019-06-25 04:51 | disposition left against medical advice (07) ==
LOC: ER 04:00
DX: R53.1 Weakness (principal); Z53.21 Procedure and treatment not carried out due to patient leaving prior to being seen by health care provider
CPT/HCPCS: 93005